=== PATIENT | female | born 1985 | race Caucasian/White ===

== ENCOUNTER 2017-07-20 18:23 | Inpatient (IN) | payer MEDICAID ==
[~2017-07-20] VITALS: Ht 152.4 cm; Wt 111.2 kg
[2017-07-20 19:09] LABS: BASOPHIL % 1.1 % (0-2); PLATELET COUNT 361 x10^3mcL (130-400); RED CELL DISTRIBUTION WIDTH 14.5 % (11.5-14.5)
[2017-07-20 19:19] LABS: CALCIUM 8.8 mg/dL (8.5-10.1); CARBON DIOXIDE 28.3 mmol/L (21-32); CHLORIDE SERUM 100 mmol/L (98-107); CREATININE SERUM 0.8 mg/dL (0.6-1.0); GFR1 > 60 mL/min; GLUCOSE SERUM 187 mg/dL (74-106); POTASSIUM SERUM 3.6 mmol/L (3.5-5.1); SODIUM SERUM 137 mmol/L (136-145)
[2017-07-20 19:26] LABS: ALBUMIN 3.4 g/dL (3.4-5.0); ALKALINE PHOSPHATASE 93 U/L (46-116); ALT/SGPT 24 U/L (14-59); AST/SGOT 7 U/L (15-37); BILIRUBIN TOTAL 0.2 mg/dL (0.20-1.00); LIPASE 137 IU/L (73-393); TOTAL PROTEIN, SERUM 7.3 g/dL (6.4-8.2)
[2017-07-20] MEDS ORDERED: METFORMIN500 M1 PO (22:25)
[2017-07-20] MEDS ORDERED: LISINOPRIL2.5 MG PO (22:25)
[2017-07-20 23:00] VITALS: BP 144/99
[2017-07-20 23:35] LABS: CHOLESTEROL/HDL RATIO 3.5; MAGNESIUM 1.6 mg/dL (1.8-2.4); PHOSPHOROUS 2.8 mg/dL (2.5-4.9)
[2017-07-20 23:40] LABS: FREE T4 0.82 ng/dL (0.76-1.46); FREE THYROXINE INDEX 2.1 ug/dL (1.4-4.5); T4(THYROXINE) 6.1 ug/dL (4.7-13.3)
[2017-07-21 02:46] LABS: AMPHETAMINE QUAL UR NONE DETECTED (NEG <=1000); UA SPECIFIC GRAVITY 1.025 (1.005-1.035); microscopic required? YES; urine erythrocyte NEGATIVE (NEGATIVE)
[2017-07-21 03:22] LABS: T3 TOTAL 0.82 ng/mL
[2017-07-21 04:50] VITALS: BP 151/94
[2017-07-21 06:04] LABS: CALCIUM 8.5 mg/dL (8.5-10.1); CARBON DIOXIDE 27.4 mmol/L (21-32); CHLORIDE SERUM 102 mmol/L (98-107); CREATININE SERUM 0.8 mg/dL (0.6-1.0); GFR1 > 60 mL/min; GLUCOSE SERUM 186 mg/dL (74-106); MAGNESIUM 1.6 mg/dL (1.8-2.4); SODIUM SERUM 137 mmol/L (136-145)
[2017-07-21 06:37] LABS: BASOPHIL % 0.4 % (0-2); PLATELET COUNT 319 x10^3mcL (130-400)
[2017-07-21 06:58] LABS: RED CELL DISTRIBUTION WIDTH 14.6 % (11.5-14.5)
[2017-07-21 09:08] VITALS: BP 156/96
[2017-07-21 13:55] VITALS: BP 137/89
[2017-07-21 20:14] LABS: CALCIUM 7.5 mg/dL (8.5-10.1); CARBON DIOXIDE 23.8 mmol/L (21-32); CHLORIDE SERUM 103 mmol/L (98-107); CREATININE SERUM 0.8 mg/dL (0.6-1.0); GFR1 > 60 mL/min; GLUCOSE SERUM 242 mg/dL (74-106); POTASSIUM SERUM 4.4 mmol/L (3.5-5.1); SODIUM SERUM 136 mmol/L (136-145)
[2017-07-21 20:20] LABS: ALKALINE PHOSPHATASE 159 U/L (46-116); ALT/SGPT 84 U/L (14-59); AST/SGOT 126 U/L (15-37); BILIRUBIN TOTAL 0.47 mg/dL (0.20-1.00); TOTAL PROTEIN, SERUM 6.5 g/dL (6.4-8.2)
[2017-07-21 20:35] LABS: ALBUMIN 2.8 g/dL (3.4-5.0)
[2017-07-21 21:25] VITALS: BP 116/67
[2017-07-22 05:46] VITALS: BP 117/64
[2017-07-22 07:39] LABS: MAGNESIUM 1.8 mg/dL (1.8-2.4); PHOSPHOROUS 3.6 mg/dL (2.5-4.9)
[2017-07-22 07:51] LABS: ALKALINE PHOSPHATASE 123 U/L (46-116); ALT/SGPT 70 U/L (14-59); AST/SGOT 65 U/L (15-37); BILIRUBIN TOTAL 0.4 mg/dL (0.20-1.00); CALCIUM 7.6 mg/dL (8.5-10.1); CARBON DIOXIDE 23.2 mmol/L (21-32); CHLORIDE SERUM 103 mmol/L (98-107); CREATININE SERUM 0.7 mg/dL (0.6-1.0); GFR1 > 60 mL/min; GLUCOSE SERUM 182 mg/dL (74-106); POTASSIUM SERUM 4.2 mmol/L (3.5-5.1); SODIUM SERUM 136 mmol/L (136-145)
[2017-07-22 07:55] LABS: ALBUMIN 2.6 g/dL (3.4-5.0); TOTAL PROTEIN, SERUM 6.1 g/dL (6.4-8.2)
[2017-07-22 08:38] LABS: BASOPHIL % 0 % (0-2); PLATELET COUNT 332 x10^3mcL (130-400); RED CELL DISTRIBUTION WIDTH 14.8 % (11.5-14.5)
[2017-07-22] MEDS ORDERED: ACETAMINOPHEN-H1 TA1 PO (09:12)
[2017-07-22] MEDS ORDERED: COL100 PO (09:12)
[2017-07-22] MEDS ORDERED: LAC PO (09:33)
[2017-07-22] MEDS ORDERED: AUG500 PO (09:33)
[2017-07-22 09:37] VITALS: BP 110/69
[2017-07-22 09:38] VITALS: BP 110/69
[2017-07-22] MEDS ORDERED: ASPIR LOW81 MG PO (10:04)
[2017-07-22] MEDS ORDERED: ATORVASTATIN CA10 M1 PO (10:05)
[2017-07-22] MEDS ORDERED: IBUPROFEN600 MG PO (10:23)
[2017-07-22] MEDS ORDERED: AUGMENTIN 875-1 EACH PO (10:31)
== END 2017-07-22 11:10 | disposition home or self-care (01) | DRG 263 ==
LOC: ED 18:23 → DU 21:41
PROVIDERS: Emergency Medicine; Family Medicine Sports Medicine; Surgery
PROC: 0FT44ZZ Resection of Gallbladder, Percutaneous Endoscopic Approach (ICD-10-PCS; principal; 2017-07-21 16:00)
DX: K80.00 Calculus of gallbladder with acute cholecystitis without obstruction (principal); N17.0 Acute kidney failure with tubular necrosis; E43 Unspecified severe protein-calorie malnutrition; E11.65 Type 2 diabetes mellitus with hyperglycemia; E83.42 Hypomagnesemia; Z68.42 Body mass index [BMI] 45.0-49.9, adult; N39.0 Urinary tract infection, site not specified; E78.5 Hyperlipidemia, unspecified; E66.9 Obesity, unspecified
CPT/HCPCS: 82962; 83880; 84439; 94150; J0330; J1885; J2175; J2250; J2405; J2543; J2704; J3010; J3475; J3490; J7030; Q0092; Q0162